=== PATIENT | male | born 1960 | race African-American/Black ===

== ENCOUNTER 2019-01-16 09:36 | Outpatient (CLI) | payer MEDICARE ==
--- NOTE | 2019-01-16 10:55 | ULT ---
Thyroid sonogram HISTORY: Thyroid mass. Goiter. FINDINGS: Right thyroid lobe measures up to 5.9 cm. Centrally is a somewhat irregular and lobular hyp oechoic mass that measures up to 1.6 cm height by 1.5 cm in width. No internal calcifications. More inferiorly is a lobular well circumscribed complex solid and cystic oval mass with internal cyst ic components. It measures up to 4.9 cm length by 2.9 cm in depth. Isthmus is 0.6 cm. Left thyroid lobe is 4.5 cm length without focal mass. IMPRESSION: Right thyroid lobe masses as detailed above. The smaller and more superior solid mass (TI-RADS 5) is actually more suspicious. Please consider FNA evaluation. Sonographic guidance could be used if needed. The more inferior and larger complex or solid cystic mass is TI-RADS 2. Not suspicious based on TI-RA DS criteria.
== END 2019-01-16 09:37 | disposition home or self-care (01) ==
LOC: ULT 09:36
PROVIDERS: ATTEND Specialist
DX: E04.9 Nontoxic goiter, unspecified (principal); E07.89 Other specified disorders of thyroid
CPT/HCPCS: 76536

== ENCOUNTER 2019-02-01 12:02 | Day surgery (SDC) | payer MEDICARE ==
[2019-01-31 10:53] VITALS: BMI 24.7
[2019-02-01] MEDS ORDERED: Sodium Bicarbonate 2.5 MEQ/5 ML VIAL ONE (12:25)
[2019-02-01] MEDS ORDERED: Lidocaine 1% PF 5 ML VIAL ONE (12:25)
--- NOTE | 2019-02-01 13:36 | ULT ---
ULTRASOUND GUIDED FINE NEEDLE ASPIRATION: HISTORY: Solid right thyroid lobe nodule. COMPARISON: 01/16/2019 FINDINGS: Successful ultrasound-guided fine-needle aspiration. A total of four 25-gauge fine-needle aspirations were performed. No immediate or postprocedure compl ications. TECHNIQUE: Consent was obtained to perform an ultrasound-guided fine-needle aspiration. FINDINGS: The previously noted solid nodule in the upper pole of the right thyroid lobe was identified. The sk in was prepped and draped in a sterile fashion, and 1% lidocaine, buffered with sodium bicarbonate, was used for local anesthesia. Under ultrasound guidance, a total of four 25-gauge fine-needle aspir ations were performed. No immediate or postprocedure complications IMPRESSION: Successful ultrasound guided fine needle aspiration. Transcribed Date/Time: 02/01/2019 1:40 PM
[2019-02-01 13:52] VITALS: BP 122/93; TEMP 98
== END 2019-02-01 13:35 | disposition home or self-care (01) ==
LOC: ULT 12:02
PROVIDERS: ATTEND Specialist
PROC: 0GBH3ZX Excision of Right Thyroid Gland Lobe, Percutaneous Approach, Diagnostic (ICD-10-PCS; principal; 2019-02-01)
DX: E04.1 Nontoxic single thyroid nodule (principal); E04.9 Nontoxic goiter, unspecified; F17.200 Nicotine dependence, unspecified, uncomplicated
CPT/HCPCS: 60100; 76942; 88173; J2001